=== PATIENT | female | born 2000 | race Two or more races ===

== ENCOUNTER → 2019-08-15 | Emergency (ER) | payer MEDICAID ==
[~2019-08-15] VITALS: Ht 157.5 cm; Wt 54.0 kg
[~2019-08-15] MED LIST: methylPREDNISolone SOD SUCC 125 MG/2 ML VL IM ONE
[2019-08-15 21:01] VITALS: BP 137/79
== END | disposition home or self-care (01) ==
LOC: ER 20:52
DX: T78.40XA Allergy, unspecified, initial encounter (principal); B37.9 Candidiasis, unspecified
CPT/HCPCS: 96372; 99283; J2930